=== PATIENT | female | born 1985 | race Caucasian/White ===

== ENCOUNTER 2018-04-26 22:30 | Inpatient (IN) | payer BC ==
[~2018-04-26] VITALS: Ht 177.8 cm; Wt 84.5 kg
[~2018-04-26 22:30] MED LIST: AUGMENTIN875 MG PO; DILAUDID2 MG PO; KEFLEX500 MG PO; MOTRIN800 MG PO; Motrin PO; PERCOCET 5/31 TABLET PO; Percocet 5/325,Endoc PO; ZOFRAN4 MG PO
[2018-04-26 22:43] VITALS: BP 118/66
[2018-04-26 23:00] LABS: HEMATOCRIT 34.9 % (36.0-46.0); HEMOGLOBIN 12.2 G/DL (11.9-15.5); MCH 31.4 PG (29.0-34.0); MCV 89.7 FL (83-99); PLATELET COUNT 172 K/uL (156-360); RBC DIS.WIDTH-CV 14.1 % (11.8-14.6); RBC DIS.WIDTH-SD 45.4 % (39-53); RED BLOOD COUNT 3.89 M/uL (3.80-5.20); WHITE BLOOD COUNT 6.2 K/uL (4.1-10.2)
[2018-04-26] MEDS ORDERED: MACROBID100 MG PO (23:02)
[2018-04-26] MEDS ORDERED: PRENATAL TABLE1 EAC3 PO (23:03)
[2018-04-26 23:30] VITALS: BP 173/116
[2018-04-26 23:37] VITALS: BP 114/62
[2018-04-26 23:39] VITALS: BP 129/67
[2018-04-26 23:42] VITALS: BP 138/65
[2018-04-26 23:45] VITALS: BP 120/61
[2018-04-27] VITALS (9 sets, daily range): BP systolic 113–133; BP diastolic 55–73
[2018-04-27] MEDS ORDERED: IBUPROFEN800 MG PO (00:37)
[2018-04-28 07:43] VITALS: BP 108/53
== END 2018-04-28 14:19 | disposition home or self-care (01) | DRG 775 ==
LOC: LDRP-OP 22:30 → 2WEST 22:31 → LDRP-OP 05-26 09:34
PROVIDERS: Advanced Practice Midwife
DX: O70.0 First degree perineal laceration during delivery (principal); Z37.0 Single live birth; Z3A.40 40 weeks gestation of pregnancy; Z87.440 Personal history of urinary (tract) infections
CPT/HCPCS: 85027; J3010; J7120